=== PATIENT | female | born 1960 | race Caucasian/White ===

== ENCOUNTER 2018-01-10 14:44 | Emergency (ER) | payer BC, OTHER ==
[2018-01-10] MEDS ORDERED: Sodium Chloride 0.9% 10 ML Syringe FLUSH PRN (15:38)
[2018-01-10] MEDS ORDERED: Ketorolac 30 MG/ML SDV IVPUSH ONE (15:40)
[2018-01-10] MEDS ORDERED: Sodium Chloride 0.9% 1,000 ML IV ONE (15:40)
[2018-01-10] MEDS ORDERED: Ondansetron 4 MG/2 ML SDV IVPUSH ONE (15:40)
--- NOTE | 2018-01-10 15:53 | EDM.PDOC ---
ED HPI GENERAL MEDICAL PROBLEM - General Chief Complaint: Gastrointestinal Problem Stated Complaint: BODY ACHES/VOMITING/LETHARGY Time Seen by Provider: 01/10/18 15:07 Source of Information: Reports: Patient History Limitations: Reports: No Limitations - History of Present Illness INITIAL COMMENTS - FREE TEXT/NARRATIVE: 57 y/o F with chief complaint of feeling weak and vomiting x 1. States she's felt ill for about 9 weeks. Has had coughing, sore throat, body aches. Has been on two rounds of antibiotics prescribed by [facility] in [facility]. She's not sure what they were treating specifically. States she at some point had fluid behind one of her ears. No recent fever. She has had the chills. No rhinorrhea. Mild sore throat. No ear pain. She does have a diffuse headache. She has had a mild cough. Mild SOB associated with coughing. No significant chest pain. Today she started to feel weak and nauseated and had one episode of vomiting. She also had a loose bowel movement, states it wasn't really diarrhea. Mild diffuse abdominal discomfort. She completed most recent course of antibiotics about 1.5 weeks ago. Abdominal Pain Score (Numeric/FACES): 8 - Related Data Allergies Allergy/AdvReac Type Severity Reaction Status Date / Time No Known Allergies Allergy Verified 01/10/18 15:00 Home Meds: Home Meds Aspirin [Halfprin] 81 mg PO DAILY 12/12/13 [History] Cholecalciferol (Vitamin D3) [Vitamin D3] 5,000 unit PO DAILY 12/12/13 [History] Cyclobenzaprine [Flexeril] 10 mg PO TID PRN 12/12/13 [History] DULoxetine [Cymbalta] 60 mg PO DAILY 12/12/13 [History] Estradiol 1 mg PO DAILY 12/12/13 [History] Folic Acid 1 mg PO DAILY 12/12/13 [History] Gabapentin [Neurontin] 600 mg PO TID 12/12/13 [History] Hyoscyamine [Hyomax-SL] 0.125 mg SL Q6H PRN 12/12/13 [History] Lansoprazole [Prevacid] 30 mg PO DAILY 12/12/13 [History] Levothyroxine [Synthroid] 88 mcg PO DAILY 12/12/13 [History] Ondansetron [Zofran] 4 mg PO Q6H PRN 12/12/13 [History] Topiramate [Topamax] 50 mg PO BID 12/12/13 [History] traMADol [Ultram] 50 mg PO Q4H PRN 12/12/13 [History] Azithromycin [Z-Kiet] 250 mg PO DAILY #4 tablet 12/13/13 [Rx] Ondansetron [Zofran ODT] 4 mg PO Q6H PRN #16 tab.dis 01/10/18 [Rx] ED ROS GENERAL - Review of Systems Review Of Systems: See Below Constitutional: Reports: Chills, Malaise, Weakness, Fatigue. Denies: Fever HEENT: Reports: No Symptoms Respiratory: Reports: Cough Cardiovascular: Reports: Lightheadedness Endocrine: Reports: Fatigue GI/Abdominal: Reports: Nausea, Vomiting : Reports: No Symptoms Musculoskeletal: Reports: Muscle Pain Skin: Reports: No Symptoms Neurological: Reports: Headache Hematologic/Lymphatic: Reports: No Symptoms Immunologic: Reports: No Symptoms ED EXAM, GI/ABD - Physical Exam Exam: See Below Exam Limited By: No Limitations General Appearance: Alert, WD/WN, No Apparent Distress Eyes: Bilateral: Normal Appearance, EOMI Ears: Normal External Exam Nose: Normal Inspection Throat/Mouth: Normal Inspection, Normal Oropharynx, Normal Voice, No Airway Compromise Head: Atraumatic, Normocephalic Neck: Normal Inspection, Supple, Non-Tender, Full Range of Motion Respiratory/Chest: No Respiratory Distress, Lungs Clear, Normal Breath Sounds, Chest Non-Tender Cardiovascular: Normal Peripheral Pulses, Regular Rate, Rhythm, No Edema GI/Abdominal Exam: Soft, No Distention, Other (mild diffuse TTP). No: Rebound Back Exam: Normal Inspection Extremities: Normal Inspection Neurological: Alert, Oriented, CN II-XII Intact, Normal Cognition, No Motor/ Sensory Deficits Psychiatric: Normal Affect, Normal Mood Skin Exam: Warm, Dry, Intact, Normal Color, No Rash Course - Vital Signs Last Recorded V/S: Last Vital Signs Temp 36.9 C 01/10/18 14:55 Pulse 80 01/10/18 14:55 Resp 18 01/10/18 14:55 BP 137/83 01/10/18 14:55 Pulse Ox 98 01/10/18 14:55 Orthostatic Blood Pressure [ 138/85 Standing] - Orders/Labs/Meds Orders: Active Orders 24 hr Category Date Time Status EKG 12 Lead [EKG Documentation Completion] [RC] STAT Care 01/10/18 15:38 Active Peripheral IV Care [RC] . DIRECTED Care 01/10/18 15:38 Active Chest 1V Frontal [CR] Stat Exams 01/10/18 15:38 Taken INFLUENZA A+B AG SCREEN [RM] Stat Lab 01/10/18 16:10 Ordered UA W/MICROSCOPIC [URIN] Stat Lab 01/10/18 16:10 Ordered Sodium Chloride 0.9% [Saline Flush] Med 01/10/18 15:38 Active 10 ml FLUSH ASDIRECTED PRN Peripheral IV Insertion Adult [OM.PC] Routine Oth 01/10/18 15:38 Ordered Medication Orders Sodium Chloride (Saline Flush) 10 ml FLUSH ASDIRECTED PRN PRN Reason: Keep Vein Open Last Admin: 01/10/18 16:04 Dose: 10 ml Labs: Laboratory Tests 01/10/18 01/10/18 01/10/18 Range/Units 15:50 15:50 15:50 WBC 5.80 (3.98-10.04) K/mm3 RBC 4.63 (3.98-5.22) M/mm3 Hgb 14.2 (11.2-15.7) gm/L Hct 42.8 (34.1-44.9) % MCV 92.4 (79.4-94.8) fl MCH 30.7 (25.6-32.2) pg MCHC 33.2 (32.2-35.5) g/dl RDW Std Deviation 46.5 H (36.4-46.3) fL Plt Count 225 (182-369) K/mm3 MPV 10.1 (9.4-12.3) fl Neut % (Auto) 83.1 H (34.0-71.1) % Lymph % (Auto) 10.5 L (19.3-51.7) % [place] % (Auto) 5.3 (4.7-12.5) % Eos % (Auto) 0.5 L (0.7-5.8) Baso % (Auto) 0.3 (0.1-1.2) % Neut # (Auto) 4.81 (1.56-6.13) K/mm3 Lymph # (Auto) 0.61 L (1.18-3.74) K/mm3 [place] # (Auto) 0.31 (0.24-0.36) K/mm3 Eos # (Auto) 0.03 L (0.04-0.36) K/mm3 Baso # (Auto) 0.02 (0.01-0.08) K/mm3 Sodium 142 (136-145) mEq/L Potassium 3.7 (3.5-5.1) mEq/L Chloride 107 (98-107) mEq/L Carbon Dioxide 23 (21-32) mEq/L Anion Gap 15.7 H (5-15) BUN 15 (7-18) mg/dL Creatinine 0.9 (0.55-1.02) mg/dL Est Cr Clr Drug Dosing 50.13 mL/min Estimated GFR (MDRD) > 60 (>60) mL/min BUN/Creatinine Ratio 16.7 (14-18) Glucose 95 (74-106) mg/dL Lactic Acid 0.7 (0.4-2.0) mmol/L Calcium 8.8 (8.5-10.1) mg/dL Magnesium 2.1 (1.8-2.4) mg/dl Total Bilirubin 0.5 (0.2-1.0) mg/dL AST 7 L (15-37) U/L ALT 21 (14-59) U/L Alkaline Phosphatase 59 (46-116) U/L Troponin I < 0.017 (0.00-0.056) ng/mL Total Protein 7.4 (6.4-8.2) g/dl Albumin 3.9 (3.4-5.0) g/dl Globulin 3.5 gm/dL Albumin/Globulin Ratio 1.1 (1-2) Lipase 118 (73-393) U/L TSH 3rd Generation 2.364 (0.358-3.74) uIU/mL Urine Color (Yellow) Urine Appearance (Clear) Urine pH (5.0-8.0) Ur Specific [place] (1.005-1.030) Urine Protein (Negative) Urine Glucose (UA) (Negative) Urine Ketones (Negative) Urine Occult Blood (Negative) Urine Nitrite (Negative) Urine Bilirubin (Negative) Urine Urobilinogen (0.2-1.0) Ur Leukocyte Esterase (Negative) Urine RBC (0-5) /hpf Urine WBC (0-5) /hpf Ur Epithelial Cells (0-5) /hpf Urine Bacteria (FEW) /hpf Urine Mucus (FEW) /hpf 01/10/18 Range/Units 16:10 WBC (3.98-10.04) K/mm3 RBC (3.98-5.22) M/mm3 Hgb (11.2-15.7) gm/L Hct (34.1-44.9) % MCV (79.4-94.8) fl MCH (25.6-32.2) pg MCHC (32.2-35.5) g/dl RDW Std Deviation (36.4-46.3) fL Plt Count (182-369) K/mm3 MPV (9.4-12.3) fl Neut % (Auto) (34.0-71.1) % Lymph % (Auto) (19.3-51.7) % [place] % (Auto) (4.7-12.5) % Eos % (Auto) (0.7-5.8) Baso % (Auto) (0.1-1.2) % Neut # (Auto) (1.56-6.13) K/mm3 Lymph # (Auto) (1.18-3.74) K/mm3 [place] # (Auto) (0.24-0.36) K/mm3 Eos # (Auto) (0.04-0.36) K/mm3 Baso # (Auto) (0.01-0.08) K/mm3 Sodium (136-145) mEq/L Potassium (3.5-5.1) mEq/L Chloride (98-107) mEq/L Carbon Dioxide (21-32) mEq/L Anion Gap (5-15) BUN (7-18) mg/dL Creatinine (0.55-1.02) mg/dL Est Cr Clr Drug Dosing mL/min Estimated GFR (MDRD) (>60) mL/min BUN/Creatinine Ratio (14-18) Glucose (74-106) mg/dL Lactic Acid (0.4-2.0) mmol/L Calcium (8.5-10.1) mg/dL Magnesium (1.8-2.4) mg/dl Total Bilirubin (0.2-1.0) mg/dL AST (15-37) U/L ALT (14-59) U/L Alkaline Phosphatase (46-116) U/L Troponin I (0.00-0.056) ng/mL Total Protein (6.4-8.2) g/dl Albumin (3.4-5.0) g/dl Globulin gm/dL Albumin/Globulin Ratio (1-2) Lipase (73-393) U/L TSH 3rd Generation (0.358-3.74) uIU/mL Urine Color Yellow (Yellow) Urine Appearance Clear (Clear) Urine pH 7.0 (5.0-8.0) Ur Specific [place] 1.015 (1.005-1.030) Urine Protein Negative (Negative) Urine Glucose (UA) Negative (Negative) Urine Ketones Negative (Negative) Urine Occult Blood Negative (Negative) Urine Nitrite Negative (Negative) Urine Bilirubin Negative (Negative) Urine Urobilinogen 0.2 (0.2-1.0) Ur Leukocyte Esterase Negative (Negative) Urine RBC Not seen (0-5) /hpf Urine WBC 0-5 (0-5) /hpf Ur Epithelial Cells 0-5 (0-5) /hpf Urine Bacteria Not seen (FEW) /hpf Urine Mucus Not seen (FEW) /hpf Meds: Medications Generic Name Dose Route Start Last Admin Trade Name Freq PRN Reason Stop Dose Admin Sodium Chloride 10 ml 01/10/18 15:38 01/10/18 16:04 Saline Flush FLUSH 10 ml ASDIRECTED PRN Administration Keep Vein Open Discontinued Medications Generic Name Dose Route Start Last Admin Trade Name Freq PRN Reason Stop Dose Admin Sodium Chloride 1,000 mls @ 1,000 mls/hr 01/10/18 15:40 01/10/18 16:01 Normal Saline IV 01/10/18 16:39 1,000 mls/hr ONETIME ONE Administration Ketorolac Tromethamine 30 mg 01/10/18 15:40 01/10/18 16:03 Toradol IVPUSH 01/10/18 15:41 30 mg ONETIME ONE Administration Ondansetron HCl 4 mg 01/10/18 15:40 01/10/18 16:01 Zofran IVPUSH 01/10/18 15:41 4 mg ONETIME ONE Administration - Re-Assessments/Exams Free Text/Narrative Re-Assessment/Exam: 01/10/18 17:32 Feels better after zofran, toradol, and IV fluids. Headache resolved. No further vomiting or diarrhea while in the ED. She is well appearing and has normal vital signs. EKG shows NSR, T wave inversions throughout precordial leads , present to some degree on EGK from 2013. No ST abnormality. Chest xray is normal. Labs show normal CBC, normal chemistry/lft's, influenza screen normal. Lactate 0.7. Trop neg. TSH neg. No clear explanation for her symptoms. Suspect viral syndrome. No indication for antibiotics or further testing at this time. I suggested she follow up with PCP FEI. Discussed ED return precautions. 01/10/18 17:35 Departure - Departure Time of Disposition: 17:37 Disposition: Home, Self-Care 01 Clinical Impression: Vomiting Qualifiers: Vomiting type: unspecified Vomiting Intractability: non-intractable Nausea presence: without nausea Qualified Code(s): R11.11 - Vomiting without nausea - Discharge Information Prescriptions: Ondansetron [Zofran ODT] 4 mg PO Q6H PRN #16 tab.dis PRN Reason: Vomiting Referrals: Long Patterson MD [Primary Care Provider] - Forms: ED Department Discharge Additional Instructions: 1. Follow up with your primary care provider as soon as possible 2. Take ondansetron as needed for nausea. 3. Take ibuprofen and/or acetaminophen (Tylenol) as needed for pain 4. Return to the ED if you have severe headache, difficulty breathing, chest pain, fever with temp 101 or higher, multiple episodes of vomiting without keeping liquids down, severe diarrhea, or other concerning symptoms - My Orders Last 24 Hours: My Active Orders 01/10/18 15:38 EKG 12 Lead [EKG Documentation Completion] [RC] STAT Peripheral IV Care [RC] . DIRECTED Chest 1V Frontal [CR] Stat Sodium Chloride 0.9% [Saline Flush] 10 ml FLUSH ASDIRECTED PRN Peripheral IV Insertion Adult [OM.PC] Routine 01/10/18 16:10 INFLUENZA A+B AG SCREEN [RM] Stat UA W/MICROSCOPIC [URIN] Stat - Assessment/Plan Last 24 Hours: My Active Orders 01/10/18 15:38 EKG 12 Lead [EKG Documentation Completion] [RC] STAT Peripheral IV Care [RC] . DIRECTED Chest 1V Frontal [CR] Stat Sodium Chloride 0.9% [Saline Flush] 10 ml FLUSH ASDIRECTED PRN Peripheral IV Insertion Adult [OM.PC] Routine 01/10/18 16:10 INFLUENZA A+B AG SCREEN [RM] Stat UA W/MICROSCOPIC [URIN] Stat
--- NOTE | 2018-01-11 08:00 | CR ---
Chest: Frontal view of the chest was obtained. Comparison: Prior chest x-ray of 12/12/13. Heart size and mediastinum are normal. Lungs are clear. Minimal scoliosis is noted within the spine. Impression: 1. Nothing acute is appreciated on frontal chest x-ray. Diagnostic code #1
== END 2018-01-10 18:05 | disposition home or self-care (01) ==
LOC: JD.ED 14:44
DX: R11.11 Vomiting without nausea (principal); Z79.82 Long term (current) use of aspirin; Z79.899 Other long term (current) drug therapy
CPT/HCPCS: 36415; 71045; 80053; 81001; 83605; 83690; 83735; 84443; 84484; 85025; 87804; 93005; 96361; 96374; 96375; 99284; J1885; J2405; J7040; J7050

== ENCOUNTER 2018-04-29 12:39 | Emergency (ER) | payer BC, OTHER ==
[2018-04-29] MEDS ORDERED: Ketorolac 60 MG/2 ML SDV IM ONE (13:42)
--- NOTE | 2018-04-29 14:38 | EDM.PDOC ---
ED HPI GENERAL MEDICAL PROBLEM - General Chief Complaint: Back Pain or Injury Stated Complaint: SIDE PAIN Time Seen by Provider: 04/29/18 12:50 right sided pain Pain Score (Numeric/FACES): 9 - Related Data Allergies Allergy/AdvReac Type Severity Reaction Status Date / Time No Known Allergies Allergy Verified 04/29/18 12:50 Home Meds: Home Meds Aspirin [Halfprin] 81 mg PO DAILY 12/12/13 [History] Cholecalciferol (Vitamin D3) [Vitamin D3] 5,000 unit PO DAILY 12/12/13 [History] DULoxetine [Cymbalta] 60 mg PO DAILY 12/12/13 [History] Estradiol 1 mg PO DAILY 12/12/13 [History] Gabapentin [Neurontin] 600 mg PO TID 12/12/13 [History] Hyoscyamine [Hyomax-SL] 0.125 mg SL Q6H PRN 12/12/13 [History] Levothyroxine [Synthroid] 88 mcg PO DAILY 12/12/13 [History] Topiramate [Topamax] 50 mg PO BID 12/12/13 [History] traMADol [Ultram] 50 mg PO Q4H PRN 12/12/13 [History] Ondansetron [Zofran ODT] 4 mg PO Q6H PRN #16 tab.dis 01/10/18 [Rx] Hydroxychloroquine [Plaquenil] 200 mg PO BID 04/29/18 [History] Naltrexone 50 mg PO BEDTIME 04/29/18 [History] Past Medical History HEENT History: Reports: Impaired Vision Cardiovascular History: Reports: Other (See Below) Other Cardiovascular History: water retention Gastrointestinal History: Reports: GERD PROC TECH History: Reports: Other (See Below) Other PROC TECH History: hysterectomy Musculoskeletal History: Reports: Arthritis, Fibromyalgia Neurological History: Reports: Migraines Psychiatric History: Reports: Depression Endocrine/Metabolic History: Reports: Hypothyroidism - Past Surgical History Female Surgical History: Reports: Hysterectomy Endocrine Surgical History: Reports: Thyroidectomy Social & Family History - Family History Family Medical History: Noncontributory - Tobacco Use Smoking Status *Q: Never Smoker Second Hand Smoke Exposure: No - Caffeine Use Caffeine Use: Reports: Coffee - Recreational Drug Use Recreational Drug Use: No ED ROS GENERAL - Review of Systems Review Of Systems: See Below ED EXAM,LOWER BACK PAIN/INJURY - Physical Exam Exam: See Below Course - Vital Signs Last Recorded V/S: Last Vital Signs Temp 36.5 C 04/29/18 12:40 Pulse 81 04/29/18 12:40 Resp 18 04/29/18 12:40 BP 143/80 H 04/29/18 12:40 Pulse Ox 98 04/29/18 12:40 - Orders/Labs/Meds Orders: Active Orders 24 hr Category Date Time Status UA W/MICROSCOPIC [URIN] Stat Lab 04/29/18 14:12 Ordered Labs: Laboratory Tests 04/29/18 Range/Units 14:12 Urine Color Yellow (Yellow) Urine Appearance Clear (Clear) Urine pH 7.0 (5.0-8.0) Ur Specific [place] 1.020 (1.005-1.030) Urine Protein Negative (Negative) Urine Glucose (UA) Negative (Negative) Urine Ketones Negative (Negative) Urine Occult Blood Trace-intact H (Negative) Urine Nitrite Negative (Negative) Urine Bilirubin Negative (Negative) Urine Urobilinogen 0.2 (0.2-1.0) Ur Leukocyte Esterase Negative (Negative) Urine RBC 0-5 (0-5) /hpf Urine WBC 0-5 (0-5) /hpf Ur Epithelial Cells 0-5 (0-5) /hpf Urine Bacteria Not seen (FEW) /hpf Urine Mucus Not seen (FEW) /hpf Meds: Medications Discontinued Medications Generic Name Dose Route Start Last Admin Trade Name Freq PRN Reason Stop Dose Admin Ketorolac Tromethamine 60 mg 04/29/18 13:42 04/29/18 14:05 Toradol IM 04/29/18 13:43 60 mg ONETIME ONE Administration - Re-Assessments/Exams Free Text/Narrative Re-Assessment/Exam: 04/29/18 14:34 See dictated ED note. Departure - Departure Time of Disposition: 14:34 Disposition: Home, Self-Care 01 Condition: Good Clinical Impression: Sacroiliac joint pain - Discharge Information *PRESCRIPTION DRUG MONITORING PROGRAM REVIEWED*: No *COPY OF PRESCRIPTION DRUG MONITORING REPORT IN PATIENT SABA: No Referrals: Long Patterson MD [Primary Care Provider] - Additional Instructions: Perform stretching exercises I demonstrated to you, as discussed. Ibuprofen as discussed. Heat/cold, as discussed. Followup with PCP - My Orders Last 24 Hours: My Active Orders 04/29/18 14:12 UA W/MICROSCOPIC [URIN] Stat - Assessment/Plan Last 24 Hours: My Active Orders 04/29/18 14:12 UA W/MICROSCOPIC [URIN] Stat
--- NOTE | 2018-04-29 16:57 | ER ---
REASON FOR EMERGENCY ROOM VISIT: Low back pain. HISTORY OF PRESENT ILLNESS: This 57-year-old woman comes in with a two-day history of right-sided lower back pain. It came on very gradually. She notes that she had a panic attack, which she has had in the past, and this occurred four days ago. She had some left- sided scapular pain following this and then she developed right low back pain. She had no associated numbness or weakness. She has never had any pain quite like this. She is unable to get comfortable either sitting or standing. She has not had any symptoms and no irritative voiding symptoms and no GI symptoms. She has not have any significant back problems in the past. PAST MEDICAL HISTORY: Her past history is relevant in that; 1. She had hysterectomy 20 years ago. 2. History of fibromyalgia. 3. History of migraines. CURRENT MEDICATIONS: Reviewed. See electronic medical record. REVIEW OF SYSTEMS: Significant in that she has had some mild nausea when her pain was severe. She has a dry mouth. Other pertinent positives and negatives, as in the HPI. PHYSICAL EXAMINATION: VITAL SIGNS: See EMR. MUSCULOSKELETAL: On examination of her back, she has normal lumbar lordosis and thoracic kyphosis. No scoliosis is noted. She does have some mild tenderness on palpation over the sacroiliac area on the right side. She has no tenderness to percussion and no paraspinal muscle spams noted. Deep tendon reflexes are symmetrical bilaterally in both lower extremities. Sensation is normal to crude touch. Straight leg raising is negative. LABORATORY DATA: UA was normal. IMPRESSION: Low back pain, right sacroiliac area. PLAN: I reviewed usual conservative measures including stretching exercises that I illustrated with her. The use of high-dose ibuprofen for four days. We did give her one dose of toradol 60 mg x1 and told her not to start her ibuprofen until tomorrow. Use of alternating heat and cold was also discussed. The natural history of low back pain was discussed as well. All questions were answered. She was discharged to home. She will be following up with her provider next week. MMODAL /[id number] DOMINIK
== END 2018-04-29 14:44 | disposition home or self-care (01) ==
LOC: JD.ED 12:39
DX: M53.3 Sacrococcygeal disorders, not elsewhere classified (principal); Z90.710 Acquired absence of both cervix and uterus; Z79.82 Long term (current) use of aspirin; Z79.899 Other long term (current) drug therapy
CPT/HCPCS: 81001; 96372; 99284; J1885; 99283

== ENCOUNTER 2019-05-23 16:27 | Emergency (ER) | payer BC, OTHER ==
[2019-05-23] MEDS ORDERED: HYDROmorphone 0.5 MG/0.5 ML Syringe IVPUSH ONE (17:04)
[2019-05-23] MEDS ORDERED: Aspirin 81 MG Tab.Chew PO ONE (17:04)
[2019-05-23] MEDS ORDERED: Sodium Chloride 0.9% 10 ML Syringe FLUSH PRN (17:04)
[2019-05-23] MEDS ORDERED: Ondansetron 4 MG/2 ML SDV IVPUSH ONE (17:04)
[2019-05-23] MEDS ORDERED: Sodium Chloride 0.9% 1,000 ML IV SCH (17:15)
--- NOTE | 2019-05-23 18:59 | EDM.PDOC ---
ED HPI GENERAL MEDICAL PROBLEM - General Chief Complaint: Chest Pain Stated Complaint: CHEST PAIN Time Seen by Provider: 05/23/19 16:34 Source of Information: Reports: Patient, RN Notes Reviewed - History of Present Illness INITIAL COMMENTS - FREE TEXT/NARRATIVE: 58-year-old lady has been having chest pain for about 4 days. She describes this as an achiness and tightness of the left anterior chest. At times the pain is worse with deep breathing. Why she does not feel short of breath. There has been radiation of the pain to both shoulders. She does not have history of hypertension, coronary artery disease or diabetes. There is family history for heart trouble in her family. She does not smoke. She had an angiogram many years ago and that did not show blockage. Left Chest Pain Score (Numeric/FACES): 7 - Related Data Allergies Allergy/AdvReac Type Severity Reaction Status Date / Time No Known Allergies Allergy Verified 05/23/19 20:21 Home Meds: Home Meds Aspirin [Halfprin] 81 mg PO DAILY 12/12/13 [History] Cholecalciferol (Vitamin D3) [Vitamin D3] 5,000 unit PO DAILY 12/12/13 [History] DULoxetine [Cymbalta] 60 mg PO DAILY 12/12/13 [History] Estradiol 1 mg PO DAILY 12/12/13 [History] Gabapentin [Neurontin] 300 mg PO TID 12/12/13 [History] Hyoscyamine [Hyomax-SL] 0.125 mg SL Q6H PRN 12/12/13 [History] Hydroxychloroquine [Plaquenil] 200 mg PO BID 04/29/18 [History] Naltrexone 50 mg PO BEDTIME 04/29/18 [History] Levothyroxine 75 mcg PO DAILY 05/23/19 [History] Promethazine [Phenergan] 12.5 mg PO BID PRN 05/23/19 [History] cycloSPORINE [Restasis] 1 drop EYEBOTH BID 05/23/19 [History] Past Medical History HEENT History: Reports: Impaired Vision Cardiovascular History: Reports: Angina, High Cholesterol, Other (See Below) Other Cardiovascular History: water retention Gastrointestinal History: Reports: GERD NURSE LICENSED PRACTICAL History: Reports: Other (See Below) Other NURSE LICENSED PRACTICAL History: hysterectomy Musculoskeletal History: Reports: Arthritis, Fibromyalgia, RA Neurological History: Reports: Migraines Psychiatric History: Reports: Depression Endocrine/Metabolic History: Reports: Hypothyroidism - Past Surgical History Female Surgical History: Reports: Hysterectomy Endocrine Surgical History: Reports: Thyroidectomy Social & Family History - Family History Family Medical History: Noncontributory - Tobacco Use Smoking Status *Q: Never Smoker - Caffeine Use Caffeine Use: Reports: Coffee - Recreational Drug Use Recreational Drug Use: No ED ROS GENERAL - Review of Systems Review Of Systems: See Below Constitutional: Denies: Fever, Chills, Diaphoresis HEENT: Reports: No Symptoms Respiratory: Denies: Shortness of Breath, Pleuritic Chest Pain Cardiovascular: Reports: Chest Pain GI/Abdominal: Denies: Abdominal Pain, Nausea, Vomiting Musculoskeletal: Reports: Shoulder Pain (mild). Denies: Arm Pain, Back Pain, Leg Pain Skin: Reports: No Symptoms Neurological: Reports: No Symptoms ED EXAM, GENERAL - Physical Exam Exam: See Below General Appearance: Alert, Anxious, Mild Distress Eye Exam: Bilateral Eye: PERRL Throat/Mouth: Normal Inspection, Normal Oropharynx Head: Atraumatic Neck: Supple, Full Range of Motion, Other (no JVD) Respiratory/Chest: No Respiratory Distress, Lungs Clear, Normal Breath Sounds, Other (there is tenderness of the L upper ant. chest wall) Cardiovascular: Regular Rate, Rhythm GI/Abdominal: Soft, Non-Tender. No: Guarding Back Exam: No: CVA Tenderness (L), CVA Tenderness (R) Extremities: Normal Inspection. No: Pedal Edema, Leg Pain, Increased Warmth Neurological: Alert, Oriented, No Motor/Sensory Deficits Skin Exam: Warm, Dry, Normal Color Course - Vital Signs Last Recorded V/S: Last Vital Signs Temp 96.9 F 05/23/19 16:34 Pulse 79 05/23/19 16:34 Resp 16 05/23/19 16:34 BP 147/89 H 05/23/19 16:34 Pulse Ox 100 05/23/19 16:34 - Orders/Labs/Meds Orders: Active Orders 24 hr Category Date Time Status EKG 12 Lead [EKG Documentation Completion] [RC] STAT Care 05/23/19 17:03 Active Peripheral IV Care [RC] . DIRECTED Care 05/23/19 17:05 Active Peripheral IV Insertion Adult [OM.PC] Stat Oth 05/23/19 17:04 Ordered Labs: Laboratory Tests 05/23/19 05/23/19 05/23/19 Range/Units 17:20 17:20 17:20 WBC 6.26 (3.98-10.04) K/mm3 RBC 4.50 (3.98-5.22) M/mm3 Hgb 13.7 (11.2-15.7) gm/dl Hct 40.5 (34.1-44.9) % MCV 90.0 (79.4-94.8) fl MCH 30.4 (25.6-32.2) pg MCHC 33.8 (32.2-35.5) g/dl RDW Std Deviation 43.7 (36.4-46.3) fL Plt Count 267 (182-369) K/mm3 MPV 10.5 (9.4-12.3) fl Neut % (Auto) 65.9 (34.0-71.1) % Lymph % (Auto) 22.4 (19.3-51.7) % [place] % (Auto) 9.4 (4.7-12.5) % Eos % (Auto) 1.6 (0.7-5.8) Baso % (Auto) 0.5 (0.1-1.2) % Neut # (Auto) 4.13 (1.56-6.13) K/mm3 Lymph # (Auto) 1.40 (1.18-3.74) K/mm3 [place] # (Auto) 0.59 H (0.24-0.36) K/mm3 Eos # (Auto) 0.10 (0.04-0.36) K/mm3 Baso # (Auto) 0.03 (0.01-0.08) K/mm3 D-Dimer, Quantitative < 0.19 L (0.19-0.50) mg/L Sodium 142 (136-145) mEq/L Potassium 3.6 (3.5-5.1) mEq/L Chloride 107 (98-107) mEq/L Carbon Dioxide 29 (21-32) mEq/L Anion Gap 9.6 (5-15) BUN 18 (7-18) mg/dL Creatinine 1.0 (0.55-1.02) mg/dL Est Cr Clr Drug Dosing 44.58 mL/min Estimated GFR (MDRD) 57 (>60) mL/min BUN/Creatinine Ratio 18.0 (14-18) Glucose 106 (74-106) mg/dL Calcium 9.2 (8.5-10.1) mg/dL Total Bilirubin 0.2 (0.2-1.0) mg/dL AST 31 (15-37) U/L ALT 38 (14-59) U/L Alkaline Phosphatase 70 (46-116) U/L Troponin I < 0.017 (0.00-0.056) ng/mL Total Protein 6.5 (6.4-8.2) g/dl Albumin 3.5 (3.4-5.0) g/dl Globulin 3.0 gm/dL Albumin/Globulin Ratio 1.2 (1-2) 05/23/19 Range/Units 19:18 WBC (3.98-10.04) K/mm3 RBC (3.98-5.22) M/mm3 Hgb (11.2-15.7) gm/dl Hct (34.1-44.9) % MCV (79.4-94.8) fl MCH (25.6-32.2) pg MCHC (32.2-35.5) g/dl RDW Std Deviation (36.4-46.3) fL Plt Count (182-369) K/mm3 MPV (9.4-12.3) fl Neut % (Auto) (34.0-71.1) % Lymph % (Auto) (19.3-51.7) % [place] % (Auto) (4.7-12.5) % Eos % (Auto) (0.7-5.8) Baso % (Auto) (0.1-1.2) % Neut # (Auto) (1.56-6.13) K/mm3 Lymph # (Auto) (1.18-3.74) K/mm3 [place] # (Auto) (0.24-0.36) K/mm3 Eos # (Auto) (0.04-0.36) K/mm3 Baso # (Auto) (0.01-0.08) K/mm3 D-Dimer, Quantitative (0.19-0.50) mg/L Sodium (136-145) mEq/L Potassium (3.5-5.1) mEq/L Chloride (98-107) mEq/L Carbon Dioxide (21-32) mEq/L Anion Gap (5-15) BUN (7-18) mg/dL Creatinine (0.55-1.02) mg/dL Est Cr Clr Drug Dosing mL/min Estimated GFR (MDRD) (>60) mL/min BUN/Creatinine Ratio (14-18) Glucose (74-106) mg/dL Calcium (8.5-10.1) mg/dL Total Bilirubin (0.2-1.0) mg/dL AST (15-37) U/L ALT (14-59) U/L Alkaline Phosphatase (46-116) U/L Troponin I < 0.017 (0.00-0.056) ng/mL Total Protein (6.4-8.2) g/dl Albumin (3.4-5.0) g/dl Globulin gm/dL Albumin/Globulin Ratio (1-2) Meds: Medications Discontinued Medications Generic Name Dose Route Start Last Admin Trade Name Freq PRN Reason Stop Dose Admin Aspirin 324 mg 05/23/19 17:04 05/23/19 18:10 Aspirin PO 05/23/19 17:05 324 mg ONETIME ONE Administration Hydromorphone HCl 0.5 mg 05/23/19 17:04 05/23/19 18:14 Dilaudid IVPUSH 05/23/19 17:05 0.5 mg ONETIME ONE Administration Sodium Chloride 1,000 mls @ 150 mls/hr 05/23/19 17:15 05/23/19 18:11 Normal Saline IV 150 mls/hr ASDIRECTED AKHIL Administration Ondansetron HCl 4 mg 05/23/19 17:04 05/23/19 18:13 Zofran IVPUSH 05/23/19 17:05 4 mg ONETIME ONE Administration Sodium Chloride 10 ml 05/23/19 17:04 05/23/19 18:19 Saline Flush FLUSH 10 ml ASDIRECTED PRN Administration Keep Vein Open - Re-Assessments/Exams Free Text/Narrative Re-Assessment/Exam: 05/23/19 20:07. Initial troponin was negative, chest x-ray looks good. Other labs have been normal, repeat troponin normal. Does feel better after medications given. Discharge instructions as documented. Departure - Departure Time of Disposition: 19:55 Disposition: Home, Self-Care 01 Condition: Fair Clinical Impression: Atypical chest pain, Chest wall pain Instructions: Chest Wall Pain, [id number], Nonspecific Chest Pain, Easy-to- Read Referrals: Long Patterson MD [Primary Care Provider] - Forms: ED Department Discharge, ED Return to Work/School Form Additional Instructions: Advil or ibuprofen 600 mg up to 3 times daily with food, you may take Tylenol in between doses of ibuprofen for extra pain relief as needed. You may also alternate ice and heat to the left chest area of discomfort as needed. Follow up with your regular medical provider in about 4-5 days for recheck, call tomorrow morning for appointment, return to ED as needed if symptoms worsening in any way. - My Orders Last 24 Hours: My Active Orders 05/23/19 17:03 EKG 12 Lead [EKG Documentation Completion] [RC] STAT 05/23/19 17:04 Peripheral IV Insertion Adult [OM.PC] Stat 05/23/19 17:05 Peripheral IV Care [RC] . DIRECTED - Assessment/Plan Last 24 Hours: My Active Orders 05/23/19 17:03 EKG 12 Lead [EKG Documentation Completion] [RC] STAT 05/23/19 17:04 Peripheral IV Insertion Adult [OM.PC] Stat 05/23/19 17:05 Peripheral IV Care [RC] . DIRECTED
--- NOTE | 2019-05-24 09:38 | CR ---
Chest: Portable view of the chest was obtained. Comparison: Previous chest x-ray of 01/10/18. Heart size and mediastinum are normal. Lungs are clear. Bony structures are grossly intact. Impression: 1. Nothing acute is seen. Diagnostic code #1
== END 2019-05-23 20:15 | disposition home or self-care (01) ==
LOC: JD.ED 16:27
DX: R07.89 Other chest pain (principal); E78.00 Pure hypercholesterolemia, unspecified; K21.9 Gastro-esophageal reflux disease without esophagitis; E03.9 Hypothyroidism, unspecified; F32.9 Major depressive disorder, single episode, unspecified; Z79.82 Long term (current) use of aspirin; Z79.899 Other long term (current) drug therapy
CPT/HCPCS: 36415; 71045; 80053; 84484; 85025; 85379; 93005; 96361; 96374; 96375; 99285; A9270; J1170; J2405; J7040